=== PATIENT | male | born 1990 | race Caucasian/White ===

== ENCOUNTER 2022-03-06 22:03 | Emergency (ER) | payer OTHER, BC ==
[~2022-03-06] VITALS: Ht 170.2 cm; Wt 75.0 kg
[2022-03-07] MEDS ORDERED: OXYCODONE HCL5 MG PO (00:19)
[2022-03-07] MEDS ORDERED: OMEPRAZOLE20 MG PO (03:41)
--- OUTSIDE RECORDS SUMMARY | 2022-03-07 05:14 | XMS ---
PreManage Notification: YARIEL JOHNSON Security Bariatric Nurse Events No recent Security Events currently on file CRITERIA MET - 6 ED Visits in 6 Months - [facility] - 2 Visits in 30 Days - [facility] - 3 Facilities in 90 Days CARE PROVIDERS PASCU[facility] Current PHONE: Unknown Dennis has no Care Guidelines for this patient. Janiya VISIT COUNT (12 MO.) [address] [facility] 1 [facility] TOTAL 18 NOTE: Visits indicate total known visits. ED/UCC VISIT TRACKING (12 MO.) 03/06/2022 22:07 ERROL Daniels TYPE: Emergency COMPLAINT: - NARCISA SURGERY COMPLICATION [facility] [place] [facility] DIAGNOSES: - Other specified behavioral and emotional disorders with onset usually occurring in childhood and adolescence - Chest Pain - chest pressure - Strain of muscle, fascia and tendon of lower back, subsequent encounter - Lesion of ulnar nerve, left upper limb - Chest pain, unspecified 02/23/2022 20:20 [facility]: Emergency DIAGNOSES: - Pain in thoracic spine - Shortness of Breath, Lt Flank Pain - Suicidal Thoughts 02/11/2022 03:32 Selena ALVAREZ TYPE: Emergency COMPLAINT: - BOWEL INCONTINENCE DIAGNOSES: - Dorsalgia, unspecified - Unspecified osteoarthritis, unspecified site 02/10/2022 18:12 [facility]: Emergency DIAGNOSES: - Lumbago with sciatica, right side - Unspecified urinary incontinence - Other chronic pain - bladder issues - Back Pain - Lumbago with sciatica, left side 02/05/2022 18:23 [facility]: Emergency DIAGNOSES: - Personal history of other diseases of urinary system - Change in bowel habit - back pain - Urinary Complaint 01/28/2022 22:59 [facility] [place] [place] TYPE: Emergency DIAGNOSES: - shooting pain up and down on arms and legs - Generalized Body Aches - Pain, unspecified 01/26/2022 19:18 [facility] [place] TYPE: Emergency DIAGNOSES: - Other chest pain - Chest Pain - Chondrocostal junction syndrome [Tietze] - Chronic superficial gastritis without bleeding - Paresthesia of skin 01/25/2022 11:43 [facility] TYPE: Emergency DIAGNOSES: - Abdominal Pain - Constipation - Change in bowel habit - poss bowel obstruction - Nausea - poss bowel obstruction/CP - Vomiting, unspecified 10/30/2021 04:46 [facility] [place] TYPE: Emergency DIAGNOSES: - fever congestion poss pneumonia - Fever, unspecified - Cough, unspecified - Acute respiratory failure with hypoxia - COVID-19 - Fever (9 Weeks To 74 Years) - Unspecified acute lower respiratory infection 10/15/2021 00:39 [facility] [place] TYPE: Emergency DIAGNOSES: - Constipation - Nausea - Constipation, unspecified - Constipation Nausea Dizziness 09/17/2021 02:32 [facility] TYPE: Emergency DIAGNOSES: - Fecal impaction - Poss bowel obstruction - Abdominal Pain 08/18/2021 19:56 [facility] TYPE: Emergency DIAGNOSES: - Cellulitis of left toe - Toe Pain - infected left foot (toe) 06/20/2021 14:12 [facility] TYPE: Emergency DIAGNOSES: - Low back pain, unspecified - back pain, numbness in legs - Back Pain - Low back pain, unspecified 06/11/2021 21:25 [facility] Sara ALVAREZ TYPE: Emergency DIAGNOSES: - nerve pains, pains over body, numb feet - Radiculopathy, lumbar region - Pain 06/04/2021 18:29 [facility] Sara ALVAREZ TYPE: Emergency DIAGNOSES: - neck pain shoulder,arm,hand pain - Neck Pain - Radiculopathy, cervical region 04/10/2021 21:25 [facility] Sara ALVAREZ TYPE: Emergency DIAGNOSES: - compreshion fractor on t9, high pain - Back Pain - Wedge compression fracture of T9-T10 vertebra, sequela - Pain in thoracic spine 04/05/2021 20:04 [facility] Sara ALVAREZ TYPE: Emergency DIAGNOSES: - Other muscle spasm - Spasms - Sent by Urgent Care. Back, foot framping, jaw cramped up. rt hand numbness. - Numbness INPATIENT VISIT TRACKING (12 MO.) 10/30/2021 04:46 [facility] Sara ALVAREZ TYPE: Surgical Services DIAGNOSES: - Acute pharyngitis, unspecified - Unspecified acute lower respiratory infection - Acute respiratory failure with hypoxia - COVID-19 - Cough, unspecified - Fever, unspecified [email or web address]
== END 2022-03-07 05:10 | disposition home or self-care (01) ==
LOC: ED 22:03
DX: K21.9 Gastro-esophageal reflux disease without esophagitis (principal); Z88.5 Allergy status to narcotic agent
CPT/HCPCS: 36415; 74177; 80053; 81003; 83690; 85025; 96361; 96375; 99284-25; J2405; J7030; Q9967